=== PATIENT | male | born 1965 | race Caucasian/White ===

== ENCOUNTER 2016-11-26 19:36 | Emergency (ER) | payer SELFPAY ==
[~2016-11-26] VITALS: Ht 188 cm; Wt 136.1 kg
[~2016-11-26 19:36] MED LIST: VALS1TAB54 PO
--- NOTE | 2016-11-26 19:45 | NUR ---
RECEIVED 51YO MALE BIB FAMILY PT IS A/O X 4 C/O CHEST PAIN WITH SHARP PAIN. PAIN STARTED @ APPROXIMATELY 1930. PT STATES NO RADIATION. PT WAS SITTING WHEN PAIN STARTED. RESPIRATONS EVEN UNLABORED. SKIN WARM AND DRY. 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
--- NOTE | 2016-11-26 19:50 | NUR ---
DR BEVERLY AT BEDSIDE FOR EVAL.
--- NOTE | 2016-11-26 19:55 | NUR ---
EMT @ BEDSIDE FOR EKG.
--- NOTE | 2016-11-26 20:00 | NUR ---
LAB AT BEDSIDE FOR BLOOD DRAW.
[2016-11-26 20:03] LABS: BASOPHILS # (AUTO) 0.1 /CMM (0.0-0.2); EOSINOPHILS # (AUTO) 0.4 /CMM (0.0-0.7); EOSINOPHILS % (AUTO) 3.6 % (0.0-6.0); HEMATOCRIT 50 % (39-51); LYMPHOCYTES # (AUTO) 3.7 /CMM (0.8-4.8); LYMPHOCYTES % (AUTO) 33.9 % (20.0-44.0); MEAN CORPUSCULAR HEMOGLOBIN 30 PG (26.0-33.0); MEAN CORPUSCULAR HGB CONC 34 g/dl (31.0-36.0); MEAN CORPUSCULAR VOLUME 88 fL (80-96); MONOCYTES # (AUTO) 0.7 /CMM (0.1-1.30); MONOCYTES % (AUTO) 6.8 % (2.0-12.0); NEUTROPHILS # (AUTO) 6.1 /CMM (1.8-8.9); NEUTROPHILS % (AUTO) 54.7 % (43.0-81.0); PLATELET COUNT (AUTO) 235 /CMM (150-450); RDW COEFFICIENT OF VARIATION 12.6 (11.5-15.0); RED BLOOD CELL COUNT(AUTO) 5.63 MIL/uL (4.5-6.0)
--- NOTE | 2016-11-26 20:10 | NUR ---
FOREARM 20G IV PLACED. SALINE LOCKED.
[2016-11-26 20:14] LABS: CALCIUM, SERUM 9.3 mg/dL (8.5-10.1); CARBON DIOXIDE 28 mmol/L (21-32); CHLORIDE 104 mmol/L (98-107); CREATININE 0.9 mg/dL (0.6-1.3); GLUCOSE 108 mg/dL (74-106); POTASSIUM 3.8 mmol/L (3.5-5.1); SODIUM SERUM 140 mmol/L (136-145); UREA NITROGEN, BLOOD 16 mg/dL (7-18)
[2016-11-26 20:17] LABS: INR 1.01 (0.87-1.13); PROTHROMBIN TIME 10.5 SECS (9.5-12.7)
[2016-11-26 20:20] LABS: ALANINE AMINOTRANSFERASE 105 U/L (12-78); ALBUMIN 4.5 g/dL (3.4-5.0); ALKALINE PHOSPHATASE 55 U/L (46-116); ASPARTATE AMINOTRANSFERASE 37 U/L (15-37); BILIRUBIN,DIRECT 0.1 mg/dL (0.0-0.2); BILIRUBIN,TOTAL 0.4 mg/dL (0.2-1.0); TOTAL PROTEIN, SERUM 8.1 g/dL (6.4-8.2)
[2016-11-26 20:24] LABS: TROPONIN I < 0.017 ng/mL (0.00-0.056)
[2016-11-26 21:09] VITALS: BP 158/91
--- NOTE | 2016-11-26 21:11 | NUR ---
Patient discharged to home in stable condition. Written and verbal after care instructions given. Patient verbalizes understanding of instruction.IV removed. Catheter intact and site benign. Pressure and 4x4 applied to site. No bleeding noted. pt. ambulatory with a steady gait VITAL SIGNS WITHIN NORMAL LIMITS.
== END 2016-11-26 21:10 | disposition home or self-care (01) ==
LOC: ER 19:41
DX: R07.9 Chest pain, unspecified (principal); I10 Essential (primary) hypertension; F17.200 Nicotine dependence, unspecified, uncomplicated
CPT/HCPCS: 36415; 71010-TC; 80048-TC; 80076-TC; 84484-TC; 85025-TC; 85730-TC; A4606; Z7610